=== PATIENT | male | born 1975 | race Caucasian/White ===

== ENCOUNTER 2018-04-29 05:07 | Inpatient (IN) ==
[2018-04-29] MEDS ORDERED: Metoprolol Tartrate 25 MG Tablet PO ONE (06:15)
[2018-04-29] MEDS ORDERED: Sodium Chlor 0.9% Inj 500 ML IV.CONT ONE (06:15)
[2018-04-29] MEDS ORDERED: Chlorhexidine Gluconate 2% 1 Pack (2 Cloths) TOPICAL ONE (06:15)
[2018-04-29] MEDS ORDERED: Vancomycin Inj 1,250 MG in Sodium Chlor 0.9% Inj 250 ML IV.SIG PRN (06:18)
--- NOTE | 2018-04-29 07:54 | P.CON ---
History of Present Illness Service: Hematology. Consult date: 04/29/18 Requesting Physician: Adan Acevedo Reason for Consult: Von Willebrand disease type 2 M. Primary Care Provider: Araceli Leyva Chief Complaint: Patient denies acute complaints. History of Present Illness: Mr. Birmingham is a 42-year-old man who was recently diagnosed with von Willebrand disease type 2M. He presents to the hospital for elective bariatric surgery which will be performed laparoscopically for management of morbid obesity. The patient was initially told when he was a child that he had von Willebrand's disease after he had significant recurrent bleeding following tonsillectomy. Many years later while undergoing workup for bariatric surgery he was advised formal hematologic evaluation for perioperative management of suspected von Willebrand's disease. In the outpatient setting the patient underwent on 2 separate occasions von Willebrand panel testing, the patient was found to have a decreased ristocetin cofactor activity to von Willebrand antigen ratio, the von Willebrand multimeric pattern was suggestive of von Willebrand type 2M disease. The patient's ristocetin cofactor activity level was consistently low at 26% ( normal limits 42-200%). Von Willebrand antigen factor level was 138% (within normal limits). The plan is to treat him with pre-and postoperative dosing with humate P. Review of Systems All other systems reviewed negative except as stated in HPI Constitutional: Denies anorexia Eyes: Reports blind spots Ears, Nose, Mouth, and Throat: Denies change in voice Cardiovascular: Denies chest pain Respiratory: Denies change in phlegm color, Denies cough Gastrointestinal: Denies abdominal pain Genitourinary: Denies blood in urine Musculoskeletal: Denies abnormal walking Skin/Breast: Denies acne Neurologic: Denies abnormal hearing Psychiatric: Denies abnormal sleep pattern, Denies anxiety Endocrine: Denies cold intolerance Hematologic/Lymphatic: Reports easy bleeding, Reports easy bruising Allergic/Immunologic: Denies GI upset with certain foods PMFSH - History History Provided By: Patient - Medical History Medical History: Medical History (Last Reviewed 03/06/18 @ 06:12 by Elizabeth Christopher) Patient denies medical problems - Surgical History Surgical History: Surgical History (Last Reviewed 03/06/18 @ 06:12 by Elizabeth Christopher) Hx of tonsillectomy - Tobacco History Second Hand Smoke Exposure: No Smoking Status: Never smoker - Alcohol History How Often Do You Have a Drink Containing Alcohol: Monthly or less - Substance Use History Substance History: No History of Abuse Medications and Allergies Active Medications: Active Medications Antihemophilic/von Willebr. Factors (Humate-P Inj) 10,000 units IV.PUSH ONCE ONE Stop: 04/29/18 09:01 Aprepitant (Emend) 40 mg PO CD REACTOR OPERATOR HEAD [facility] Lactated Ringer's (Lr 1000 Ml Inj) 1,000 mls @ 30 mls/hr IV.CONT .Q24H ONE Stop: 04/30/18 06:14 Sodium Chloride (Ns Inj) 500 mls @ 30 mls/hr IV.CONT .[id number] ONE Stop: 04/29/18 22:54 Metronidazole/Sodium Chloride (Flagyl 500 Mg Inj) 100 mls @ 100 mls/hr IV.SIG CD REACTOR OPERATOR HEAD PRN PRN Reason: SCHEDULED Stop: 05/03/18 06:17 Vancomycin HCl 1,250 mg/ (Sodium Chloride) 262.5 mls @ 250 mls/hr IV.SIG CD REACTOR OPERATOR HEAD PRN PRN Reason: SCHEDULED Stop: 05/03/18 06:17 Acetaminophen (Ofirmev Inj) 1,000 mg in 100 mls @ 400 mls/hr IV.SIG CD REACTOR OPERATOR HEAD ANDRE Ondansetron HCl (Zofran Inj) 4 mg IV.PUSH CD REACTOR OPERATOR HEAD [facility] Allergies Allergy/AdvReac Type Severity Reaction Status Date / Time amoxicillin Allergy Itching Verified 03/06/18 06:09 shellfish derived Allergy Swelling Verified 03/06/18 06:09 Home Medications Medication Instructions Recorded Confirmed Type bupropion HCl [Wellbutrin SR] 150 mg PO BID 03/06/18 03/06/18 History Physical Exam Narrative: Young male, sitting up in bed, appears to be no acute distress. Is morbidly obese. Accompanied by his . HEENT: Head atraumatic was felt, conjunctivae not pale sclera anicteric, EOMI, PERRLA, oral exam of pharyngeal erythema. Neck exam no palpable cervical supra clavicular adenopathy. Respiratory exam: Good air movement bilaterally at breath sounds. Cardiovascular exam: Regular rate and rhythm, S1-S2 no obvious murmurs rubs gallops. Abdominal exam: Morbidly obese belly, soft, no obvious tenderness, positive bowel sounds. Skin: Nonfocal examination. SENIOR IT ASSISTANT: No focal sensorimotor deficits. Musculoskeletal: Adequate muscle mass, tone and strength. Lower extremities: Pneumatic compression devices are on. Assessment and Plan - Plan Mr. Birmingham is a 42-year-old man with morbid obesity, he is coming in for bariatric surgery today. He was diagnosed with von Willebrand disease type 2M after undergoing a recent outpatient workup. The patient reports having undergone a tonsillectomy as a child after which he had significant bleeding. He was told informally at that time that he had von Willebrand's disease. The patient did undergo a formal evaluation leading up to this planned surgery. On 2 separate occasions von Willebrand panel testing indicated results most consistent with von Willebrand type 2M disease which is a rare variant of von Willebrand. Because he does carry this diagnosis and because the patient has a below normal ristocetin cofactor activity level at 26% he is at increased risk of bleeding intraoperatively and postoperatively up until epithelialization is complete. For this reason he has been advised factor replacement with Humate P preoperatively and postoperatively. He will be dosed according to the clinic receptionist's recommended dosing; preoperatively dosing at 60-80 units/kg x1 is advised followed by maintenance dosing at a dose of 40-60 units/kg every 8-12 hours as advised. I have been in contact with our pharmacists who have made arrangements to stock sufficient supplies of the humate factor. I have also talked to the surgeon and the anesthesiologist who will be in contact with me during surgery should there be issues with excessive bleeding. I have advised the patient's bariatric surgeon to avoid chemical DVT prophylaxis in the postoperative period due to the risk of bleeding. I have advised pneumatic compression stockings and early ambulation instead. Recommendations: 1. Von Willebrand type 2M: Dose with Humate-P x1 at 10,000 units preoperatively. Pharmacy is aware, preop nursing staff aware, anesthesiologist aware and surgeon aware. I will be on standby to assist with additional recommendations should there be issues with maintaining hemostasis during surgery. I will follow the patient along with you and will see him postoperatively as well. Postoperatively he will be monitored clinically for signs and symptoms of bleeding. I would advise hemoglobin and hematocrit checks every 8 hours at least for 2-3 days.
[2018-04-29] MEDS ORDERED: Metoprolol Tartrate 25 MG Tablet PO SCH (08:05)
[2018-04-29] MEDS ORDERED: Chlorhexidine Gluconate 2% 1 Pack (2 Cloths) TOPICAL SCH (08:05)
[2018-04-29] MEDS ORDERED: ANTIHEMOPHILIC FACTOR VIII IV.PUSH ONE (09:00)
[2018-04-29] MEDS ORDERED: VWF IV.PUSH ONE (09:00)
[2018-04-29] MEDS ORDERED: Sodium Chlor 0.9% Inj 500 ML IV.SIG SCH (09:00)
[2018-04-29] MEDS ORDERED: Bupivacaine/Epinephrine 0.5% Inj 50 ML Vial ONE (09:36)
[2018-04-29] MEDS ORDERED: Succinylcholine Inj 100 MG/5 ML Syringe IV.PUSH ONE (09:55)
[2018-04-29] MEDS ORDERED: Lidocaine PF 1% Inj 5 ML Syringe INFILTRATN ONE (09:55)
[2018-04-29] MEDS ORDERED: Glycopyrrolate Inj 1 MG/5 ML Syringe IV.PUSH ONE (09:55)
[2018-04-29] MEDS ORDERED: Neostigmine Inj 5 MG/5 ML Syringe IV.PUSH ONE (09:55)
[2018-04-29] MEDS ORDERED: diphenhydrAMINE HCl 12.5 MG/5 ML Elixir UDC PO PRN ×2 (14:01→14:08)
[2018-04-29] MEDS ORDERED: Acetaminophen-HYDROcodone 325/7.5 Liq 15 ML UDC PO PRN (14:01)
[2018-04-29] MEDS ORDERED: Post-op Orders (for Pharmacy) OTHER STA ×2 (14:01→14:08)
[2018-04-29] MEDS ORDERED: Naloxone Inj 0.4 MG/ML Vial IV.PUSH PRN (14:08)
[2018-04-29] MEDS ORDERED: KCL 20 mEq/D5W/NaCl 0.45% Inj 1,000 ML IV.CONT SCH (14:15)
[2018-04-29] MEDS ORDERED: fentaNYL Citrate Inj 100 MCG/2 ML Ampul ONE (14:18)
[2018-04-29] MEDS ORDERED: *morphine SULFATE 10 MG/ML PERIprocedure ONLY ONE (14:21)
[2018-04-29] MEDS: KCL 20 mEq/D5W/NaCl 0.45% Inj 1,000 ML IV.CONT SCH (14:30)
[2018-04-29] MEDS: HYDROmorphone PCA Inj 6 MG/30 ML PCA.VIAL PCA PRN ×2 (14:30→20:45)
[2018-04-29] MEDS ORDERED: KCL 20 mEq/D5W/NaCl 0.45% Inj 1,000 ML ONE (14:31)
[2018-04-29] MEDS ORDERED: HYDROmorphone PCA Inj 6 MG/30 ML PCA.VIAL PCA ONE (14:31)
[2018-04-29] MEDS: Vancomycin Inj 1,000 MG in Sodium Chlor 0.9% Inj 250 ML IV.SIG SCH (21:46)
[2018-04-30] MEDS: KCL 20 mEq/D5W/NaCl 0.45% Inj 1,000 ML IV.CONT SCH ×3 (00:22→18:40)
[2018-04-30] MEDS: HYDROmorphone PCA Inj 6 MG/30 ML PCA.VIAL PCA PRN ×2 (05:54→18:42)
[2018-04-30 06:43] LABS: Baso # (Auto) 0.1 th/mm3 (0.0-0.2); Baso % (Auto) 0.8 % (0.0-2.0); Eos # (Auto) 0.1 th/mm3 (0.0-0.4); Eos % (Auto) 0.5 % (0.0-4.0); Lymph # (Auto) 1.2 th/mm3 (1.0-4.8); Lymph % (Auto) 7.2 % (9.0-44.0); Mean Corpuscular HGB Conc 34.1 % (32.0-36.0); Mean Corpuscular Hemoglobin 30.1 pg (27.0-34.0); Mean Corpuscular Volume 88.4 fL (80.0-100.0); Mean Platelet Volume 8.7 fL (7.0-11.0); Mono # (Auto) 1.7 th/mm3 (0.0-0.9); Mono % (Auto) 9.7 % (0.0-8.0); Neut % (Auto) 81.8 % (16.0-70.0); Platelet Count 187 th/mm3 (150-450); Red Blood Count 4.64 mil/mm3 (4.50-5.90); Red Cell Distribution Width 13.8 % (11.6-17.2); White Blood Count 17.1 th/mm3 (4.0-11.0)
[2018-04-30 07:25] LABS: Anion Gap 8 meq/L (5-15); Blood Urea Nitrogen 11 mg/dL (7-18); Calcium 7.9 mg/dL (8.5-10.1); Carbon Dioxide 27.4 meq/L (21.0-32.0); Chloride 104 meq/L (98-107); Glomerular Filtration Rate Greater Than 89 mL/min (>89); Glucose,Random 91 mg/dL (74-106); Sodium 139 meq/L (136-145)
[2018-04-30 07:26] LABS: Potassium 4.3 meq/L (3.5-5.1)
--- NOTE | 2018-04-30 07:27 | P.PNONC ---
Subjective Interval history: Patient seen and examined this AM, POD 1. Surgery was uneventful, postoperative course has also been uneventful for untoward bleeding. This morning, the patient tells me he has been up and out of bed several times. He tells me his pain is reasonably well-controlled. He denies difficulty breathing, he has Pneumatic compression devices on. Objective Vital Signs/Intake & Output: Vital Signs 04/29/18 08:20 04/29/18 14:13 04/29/18 14:30 Temperature 98.5 F 98.6 F Pulse Rate 88 100 H 93 H Respiratory Rate 18 22 22 Blood Pressure 150/88 H 149/79 H 152/70 H Pulse Oximetry 95 95 94 L 04/29/18 14:45 04/29/18 14:55 04/29/18 15:00 Temperature Pulse Rate 91 H 96 H Respiratory Rate 24 23 Blood Pressure 142/70 H 152/70 H Pulse Oximetry 93 L 95 97 04/29/18 15:15 04/29/18 15:30 04/29/18 15:45 Temperature 98.6 F Pulse Rate 92 H 94 H 93 H Respiratory Rate 20 20 20 Blood Pressure 141/60 H 145/60 H 141/64 H Pulse Oximetry 92 L 95 94 L 04/29/18 16:03 04/29/18 16:08 04/29/18 21:08 Temperature 97.6 F 97.9 F Pulse Rate 86 88 Respiratory Rate 18 18 Blood Pressure 144/77 H 120/70 Pulse Oximetry 95 95 96 04/30/18 00:00 04/30/18 05:08 Temperature 97.9 F 98.6 F Pulse Rate 103 H 94 H Respiratory Rate 18 18 Blood Pressure 104/56 L 114/56 L Pulse Oximetry 96 96 Intake & Output 04/29/18 04/30/18 04/30/18 18:59 06:59 18:59 Intake Total 2862.5 / 2862.5 1270 / 1270 Output Total 300 / 300 725 / 725 Balance 2562.5 / 2562.5 545 / 545 Weight 174.1 kg Intake: IV 1462.5 / 1462.5 1250 / 1250 D5W/1/2NS + KCL 20 mEq Inj 1, 1000 / 1000 000 ML @ 125 mls/hr IV.CONT . Q8H [facility] Rx#:[id number] Ofirmev Inj 1,000 mg In 100 ml 100 / 100 @ 400 mls/hr IV.SIG TAG MACHINE OPERATOR ANDRE Rx#:[id number] LR 1000 mL Inj 1,000 ML @ 30 1000 / 1000 mls/hr IV.SIG .Q24H [facility] Rx#: [id number] Vancomycin Inj 1,000 MG In NS 250 / 250 Inj 250 ML @ 250 mls/hr IV.SIG Q12H [facility] Rx#:[id number] Vancomycin Inj 1,250 MG In NS 262.5 / 262.5 Inj 250 ML @ 250 mls/hr IV.SIG TAG MACHINE OPERATOR PRN Rx#:[id number] Flagyl 500 MG Inj 100 ML @ 100 100 / 100 mls/hr IV.SIG TAG MACHINE OPERATOR PRN Rx#: [id number] Oral 20 / 20 Anesthesia Amount 1400 / 1400 Output: Urine 0 / 0 Estimated Blood Loss 50 / 50 Urine Amount (Catheter) 250 / 250 650 / 650 Indwelling Urethral Catheter 250 / 250 650 / 650 Wound Drainage 75 / 75 # 1 Left Abdomen 75 / 75 Other: Date of Last Bowel Movement 04/29/18 Weight On Admission 174.1 kg Result Diagrams: 04/30/18 04:39 04/30/18 04:39 Laboratory Results: Laboratory Results - last 24 hr 04/29/18 04/30/18 08:35 04:39 WBC 17.1 H RBC 4.64 Hgb 14.0 Hct 41.0 MCV 88.4 MCH 30.1 MCHC 34.1 RDW 13.8 Plt Count 187 MPV 8.7 Neut % (Auto) 81.8 H Lymph % (Auto) 7.2 L [place] % (Auto) 9.7 H Eos % (Auto) 0.5 Baso % (Auto) 0.8 Neut # (Auto) 14.0 H Lymph # (Auto) 1.2 [place] # (Auto) 1.7 H Eos # (Auto) 0.1 Baso # (Auto) 0.1 WBC Differential . Differential Comment Auto diff final Blood Type A Positive Antibody Screen Negative MTS Gel Crossmatch See Detail Medications: Active Medications Generic Name Dose Route Start Last Admin Trade Name Freq PRN Reason Stop Dose Admin Acetaminophen 1,000 mg 04/29/18 15:00 04/30/18 04:09 Ofirmev Inj IV.SIG 04/30/18 09:01 1,000 mg Q6H ANDRE Administration Aprepitant 40 mg 04/29/18 06:30 04/29/18 08:39 Emend PO 40 mg TAG MACHINE OPERATOR ANDRE Administration Metronidazole/Sodium Chloride 100 mls @ 100 mls/hr 04/29/18 06:18 04/29/18 10 :40 Flagyl 500 Mg Inj IV.SIG 05/03/18 06:17 Infused TAG MACHINE OPERATOR PRN Infusion SCHEDULED Vancomycin HCl 1,250 mg/ 262.5 mls @ 250 mls/hr 04/29/18 06:18 04/29/18 11:30 Sodium Chloride IV.SIG 05/03/18 06:17 Infused TAG MACHINE OPERATOR PRN Infusion SCHEDULED Acetaminophen 1,000 mg in 100 mls @ 400 mls/hr 04/29/18 06:30 04/29/18 09:40 Ofirmev Inj IV.SIG Infused TAG MACHINE OPERATOR ANDRE Infusion Lactated Ringer's 1,000 mls @ 30 mls/hr 04/29/18 08:15 04/29/18 13:51 Lr 1000 Ml Inj IV.SIG 04/30/18 08:14 Infused .Q24H [facility] Infusion Potassium Chloride/Dextrose/Sod Cl 1,000 mls @ 125 mls/hr 04/29/18 14:15 02/07 00:22 D5w/1/2ns + Kcl 20 Meq Inj IV.CONT 125 mls/hr .Q8H ANDRE Administration Vancomycin HCl 1,000 mg/ 250 mls @ 250 mls/hr 04/29/18 22:00 04/29/18 22:55 Sodium Chloride IV.SIG 04/30/18 10:59 Infused Q12H ANDRE Infusion Hydromorphone/Sodium Chloride 6 mg in 30 mls @ 0 mls/hr 04/29/18 14:08 05:54 Dilaudid Manager Progressive Care Inj OPERATING ROOM SURGICAL TECHNICIAN 0 mls/hr UNSCH PRN Administration prn pain 0 MG/HR Metoclopramide HCl 10 mg 04/29/18 18:00 04/30/18 05:53 Reglan Inj IV.PUSH 04/30/18 12:01 10 mg Q6HR ANDRE Administration Protocol Ondansetron HCl 4 mg 04/29/18 06:30 04/29/18 08:39 Zofran Inj IV.PUSH 4 mg TAG MACHINE OPERATOR ANDRE Administration Sodium Chloride 2 ml 04/29/18 21:00 11/07/18 20:26 Ns Flush IV.FLUSH Not Given BID ANDRE Objective Remarks: Young male, laying in bed, appears to be no acute distress. HEENT: Head atraumatic, normocephalic, conjunctivae not pale sclera anicteric, EOMI, PERRLA, oral exam of pharyngeal erythema. Neck exam no palpable cervical supra clavicular adenopathy. Respiratory exam: Good air movement bilaterally at breath sounds. Cardiovascular exam: Regular rate and rhythm, S1-S2 no obvious murmurs rubs gallops. Abdominal exam: Morbidly obese belly, soft, no obvious tenderness, positive bowel sounds. CHARLEY drain containing approximately 30-40 cc of serosanguineous liquid. Surgical incisions appear dry. Steri-Strips are on. Skin: Nonfocal examination. BROOM MACHINE OPERATOR: No focal sensorimotor deficits. Musculoskeletal: Adequate muscle mass, tone and strength. Lower extremities: Pneumatic compression devices are on. Assessment/Plan - Plan Mr. Birmingham is a 42-year-old man with morbid obesity, he is coming in for bariatric surgery today. He was diagnosed with von Willebrand disease type 2M after undergoing a recent outpatient workup. The patient reports having undergone a tonsillectomy as a child after which he had significant bleeding. He was told informally at that time that he had von Willebrand's disease. The patient did undergo a formal evaluation leading up to this planned surgery. On 2 separate occasions von Willebrand panel testing indicated results most consistent with von Willebrand type 2M disease which is a rare variant of von Willebrand. Because he does carry this diagnosis and because the patient has a below normal ristocetin cofactor activity level at 26% he is at increased risk of bleeding intraoperatively and postoperatively up until epithelialization is complete. Recommendations: 1. Postoperative day 1 following duodenal switch bariatric surgery: Hemostasis appears to be excellent, hemoglobin and hematocrit levels are stable. CHARLEY drain is draining expected amounts of serosanguineous liquid, surgical incisions are also without evidence of ongoing bleeding. He did receive a single dose of humate P preoperatively a dose of 60 units/kg. Given the excellent hemostasis at this time, I have advised against additional Humate-P dosing. If he does begin to lose I will advise DDAVP intranasal spray. Continue monitoring, clinically he is doing very well. Repeat CBC
[2018-04-30] MEDS: Vancomycin Inj 1,000 MG in Sodium Chlor 0.9% Inj 250 ML IV.SIG SCH (11:14)
--- NOTE | 2018-04-30 15:10 | P.PNGS ---
Subjective Patient reports: tolerating liquids well (Pt denies N/V, SOB, palpitations or chest pain. Tolerating 30 every 30 min clear liquid. Pain is well controlled) Physical Exam Vital signs: Vital Signs 04/29/18 15:15 04/29/18 15:30 04/29/18 15:45 Temperature 98.6 F Pulse Rate 92 H 94 H 93 H Respiratory Rate 20 20 20 Blood Pressure 141/60 H 145/60 H 141/64 H Pulse Oximetry 92 L 95 94 L 04/29/18 16:03 04/29/18 16:08 04/29/18 21:08 Temperature 97.6 F 97.9 F Pulse Rate 86 88 Respiratory Rate 18 18 Blood Pressure 144/77 H 120/70 Pulse Oximetry 95 95 96 04/30/18 00:00 04/30/18 05:08 04/30/18 08:28 Temperature 97.9 F 98.6 F 98.8 F Pulse Rate 103 H 94 H 88 Respiratory Rate 18 18 18 Blood Pressure 104/56 L 114/56 L 102/51 L Pulse Oximetry 96 96 04/30/18 08:40 04/30/18 10:00 04/30/18 11:04 Temperature 98.7 F Pulse Rate 88 Respiratory Rate 18 Blood Pressure 123/75 Pulse Oximetry 93 L 93 L 95 04/30/18 13:08 Temperature 98.6 F Pulse Rate 88 Respiratory Rate 18 Blood Pressure 118/71 Pulse Oximetry 94 L Intake & Output 04/29/18 04/30/18 04/30/18 18:59 06:59 18:59 Intake Total 2862.5 / 2862.5 1270 / 1270 1250 / 1250 Output Total 300 / 300 725 / 725 300 / 300 Balance 2562.5 / 2562.5 545 / 545 950 / 950 Weight 174.1 kg Intake: IV 1462.5 / 1462.5 1250 / 1250 1250 / 1250 D5W/1/2NS + KCL 20 mEq Inj 1, 1000 / 1000 1000 / 1000 000 ML @ 125 mls/hr IV.CONT . Q8H [facility] Rx#:[id number] Ofirmev Inj 1,000 mg In 100 ml 100 / 100 @ 400 mls/hr IV.SIG PLATER APPRENTICE ANDRE Rx#:[id number] LR 1000 mL Inj 1,000 ML @ 30 1000 / 1000 mls/hr IV.SIG .Q24H [facility] Rx#: [id number] Vancomycin Inj 1,000 MG In NS 250 / 250 250 / 250 Inj 250 ML @ 250 mls/hr IV.SIG Q12H [facility] Rx#:[id number] Vancomycin Inj 1,250 MG In NS 262.5 / 262.5 Inj 250 ML @ 250 mls/hr IV.SIG PLATER APPRENTICE PRN Rx#:[id number] Flagyl 500 MG Inj 100 ML @ 100 100 / 100 mls/hr IV.SIG PLATER APPRENTICE PRN Rx#: [id number] Oral 20 / 20 Anesthesia Amount 1400 / 1400 Output: Urine 0 / 0 Estimated Blood Loss 50 / 50 Urine Amount (Catheter) 250 / 250 650 / 650 300 / 300 Indwelling Urethral Catheter 250 / 250 650 / 650 300 / 300 Wound Drainage 75 / 75 # 1 Left Abdomen 75 / 75 Other: Date of Last Bowel Movement 04/29/18 Weight On Admission 174.1 kg - Constitutional no acute distress - Routine Neck Exam Present: supple - Routine Respiratory Exam Present: CTA bilaterally - Routine Cardiovascular Exam Present: RRR, S1, S2 - Routine Abdominal Exam Present: soft Comments: normal post operative tenderness, CHARLEY site intact with moderate SS drainage to bulb suction. - Urinary Catheter Management Indwelling Urethral Catheter Cath placed during this visit: yes, but has since been removed by the nurse Reason for continuing: Decision to DC catheter Insertion date: 04/29/18 Insertion time: 10:05 Removal date: 04/30/18 Removal time: 09:10 Results - Labs 04/30/18 04:39 04/30/18 04:39 Laboratory Results - last 24 hr 04/30/18 04/30/18 04:39 04:39 WBC 17.1 H RBC 4.64 Hgb 14.0 Hct 41.0 MCV 88.4 MCH 30.1 MCHC 34.1 RDW 13.8 Plt Count 187 MPV 8.7 Neut % (Auto) 81.8 H Lymph % (Auto) 7.2 L [place] % (Auto) 9.7 H Eos % (Auto) 0.5 Baso % (Auto) 0.8 Neut # (Auto) 14.0 H Lymph # (Auto) 1.2 [place] # (Auto) 1.7 H Eos # (Auto) 0.1 Baso # (Auto) 0.1 WBC Differential . Differential Comment Auto diff final Sodium 139 Potassium 4.3 Chloride 104 Carbon Dioxide 27.4 Anion Gap 8 BUN 11 Creatinine 0.77 Estimated GFR Greater than 89 Random Glucose 91 Calcium 7.9 L Magnesium 2.0 Assessment and Plan - Assessment (1) S/P biliopancreatic diversion with duodenal switch Code(s): Z98.84 - Bariatric surgery status Status: Acute Plan: Advance to 60 ml every 30 minutes of clear liquid in the AM Ambulate every hour, Continue IVF until tolerating PO. SCD's for DVT prevention. (2) Von Willebrand disease, type IIa Code(s): D68.0 - Von Willebrand's disease Status: Chronic Plan: Dr. Maharaj following, repeat CBC in AM. No s/s of abnormal bleeding currently. (3) HTN, goal below 140/90 Code(s): I10 - Essential (primary) hypertension Status: Chronic Plan: Well controlled currently continue to monitor. (4) LAVON (generalized anxiety disorder) Code(s): F41.1 - Generalized anxiety disorder Status: Chronic Plan: Restart Sertaline - Plan POD#1 DS Doing well continue to advance fluids tomorrow. If continues with good progress and CBC stable may continue discharge tomorrow. Code Status: full Discussed Condition With: patient
[2018-04-30] MEDS: buPROPion 150 MG 12 HR Tablet PO SCH (20:17)
[2018-05-01] MEDS: HYDROmorphone PCA Inj 6 MG/30 ML PCA.VIAL PCA PRN (00:15)
[2018-05-01] MEDS: KCL 20 mEq/D5W/NaCl 0.45% Inj 1,000 ML IV.CONT SCH ×3 (00:42→10:10)
[2018-05-01 05:53] LABS: Hematocrit 40.8 % (39.0-51.0); Hemoglobin 13.7 gm/dL (13.0-17.0); Mean Corpuscular HGB Conc 33.5 % (32.0-36.0); Mean Corpuscular Hemoglobin 29.6 pg (27.0-34.0); Mean Corpuscular Volume 88.5 fL (80.0-100.0); Mean Platelet Volume 7.7 fL (7.0-11.0); Platelet Count 295 th/mm3 (150-450); Red Blood Count 4.61 mil/mm3 (4.50-5.90); Red Cell Distribution Width 13.6 % (11.6-17.2); White Blood Count 14.2 th/mm3 (4.0-11.0)
[2018-05-01 06:40] VITALS: RESP 18
[2018-05-01] MEDS: buPROPion 150 MG 12 HR Tablet PO SCH (10:11)
[2018-05-01 11:24] VITALS: BP 132/66; PULSE 72; TEMP 98.7; O2SAT 94
--- NOTE | 2018-05-01 15:53 | P.PNGS ---
Subjective Patient reports: feels better, tolerating liquids well, flatus (Pt denies nausea , SOB, palpitations or chest pain. ) Physical Exam Vital signs: Vital Signs 04/30/18 16:00 04/30/18 20:00 05/01/18 00:00 Temperature 98.1 F 99.4 F 98.5 F Pulse Rate 101 H 106 H 105 H Respiratory Rate 18 20 20 Blood Pressure 154/108 H 147/78 H 161/73 H Pulse Oximetry 96 92 L 92 L 05/01/18 04:00 05/01/18 10:35 05/01/18 11:23 Temperature 98.0 F 98.7 F Pulse Rate 98 H 72 Respiratory Rate 18 Blood Pressure 153/93 H 132/66 Pulse Oximetry 94 L 92 L 94 L Intake & Output 04/30/18 05/01/18 05/01/18 18:59 06:59 18:59 Intake Total 2250 / 2250 1000 / 1000 1000 / 1000 Output Total 300 / 300 80 / 80 70 / 70 Balance 1950 / 1950 920 / 920 930 / 930 Weight 177.2 kg Intake: IV 2250 / 2250 1000 / 1000 1000 / 1000 D5W/1/2NS + KCL 20 mEq Inj 1, 2000 / 2000 1000 / 1000 1000 / 1000 000 ML @ 125 mls/hr IV.CONT . Q8H [facility] Rx#:[id number] Vancomycin Inj 1,000 MG In NS 250 / 250 Inj 250 ML @ 250 mls/hr IV.SIG Q12H [facility] Rx#:[id number] Output: Urine Amount (Catheter) 300 / 300 Indwelling Urethral Catheter 300 / 300 Wound Drainage 80 / 80 70 / 70 # 1 Left Abdomen 80 / 80 70 / 70 Other: # Voids 4 2 - Constitutional no acute distress - Routine Neck Exam Present: supple - Routine Respiratory Exam Present: CTA bilaterally - Routine Cardiovascular Exam Present: RRR, S1, S2 - Routine Abdominal Exam Present: soft Comments: Normoactive bowel sounds, laproscopic and Lele sites WNL. - Urinary Catheter Management Indwelling Urethral Catheter Cath placed during this visit: yes, but has since been removed by the nurse Reason for continuing: Decision to DC catheter Insertion date: 04/29/18 Insertion time: 10:05 Removal date: 04/30/18 Removal time: 09:10 Results - Labs 05/01/18 04:51 04/30/18 04:39 Laboratory Results - last 24 hr 05/01/18 04:51 WBC 14.2 H RBC 4.61 Hgb 13.7 Hct 40.8 MCV 88.5 MCH 29.6 MCHC 33.5 RDW 13.6 Plt Count 295 D MPV 7.7 Assessment and Plan - Assessment (1) S/P biliopancreatic diversion with duodenal switch Code(s): Z98.84 - Bariatric surgery status Status: Acute Plan: Tolerating clear liquid well, start Protein and full liquid in two days Follow up in one week in office with ACID TENDER. (2) Von Willebrand disease, type IIa Code(s): D68.0 - Von Willebrand's disease Status: Chronic Plan: Dr. Maharaj following,CBC stable, d/c home with DDAVP per Dr. Maharaj Pt understands that he will not be discharged until this medication and instruction for use are received from Dr. Maharaj. (3) HTN, goal below 140/90 Code(s): I10 - Essential (primary) hypertension Status: Chronic Plan: Monitor daily notify office if greater than 140/90 (4) LAVON (generalized anxiety disorder) Code(s): F41.1 - Generalized anxiety disorder Status: Chronic Plan: Continue sertraline - Plan POD#2 DS Doing well Discharge home.
[2018-05-01] MEDS ORDERED: DESMOPRESSIN NASAL PRN (16:00)
--- NOTE | 2018-05-08 17:39 | MP ---
cc: Adan Acevedo MD DATE OF OPERATION: PREOPERATIVE DIAGNOSIS: Morbid obesity with a BMI of 62. POSTOPERATIVE DIAGNOSIS: Morbid obesity with a BMI of 62. PROCEDURE PERFORMED: Laparoscopic duodenal switch; 120 cm common channel 150 cm alimentary limb. SURGEON: Adan Acevedo MD DRIVER EDUCATION RO[address] INSTRUCTOR: Tai Figueroa MD. Dr. Figueroa's was assistance was necessary for the procedure due to the complexity of the procedure, Dr. Figueroa assisted with manipulation and exposure during the procedure. The anesthesiologists' assistant provided by [facility] was utilized at managing the camera during the procedure. ANESTHESIA: General endotracheal anesthesia. ESTIMATED BLOOD LOSS: 20 mL FINDINGS: Fatty liver. SPECIMENS: None. COMPLICATIONS: None. OPERATION IN DETAIL: The patient was brought to the operating room and placed on the operating table in a supine position. A bilateral sequential inflation device was placed on the lower extremities. General anesthesia was instituted. A Umanzor catheter was placed. Antibiotics were initiated. The abdomen was prepped and draped sterilely. A point in the periumbilical region was anesthetized with 0.25% Marcaine with epinephrine. A skin incision was made. A 5 mm Optiview port was placed under direct vision and pneumoperitoneum created. Under direct vision two 12 mm left upper quadrant and a 5 mm left lower quadrant port was placed. Two 12 mm right upper quadrant ports and a 5 mm epigastric port were placed. Prior to placement of all ports the skin and peritoneum were anesthetized with 0.25% Marcaine with epinephrine. The patient was placed in reverse Trendelenburg position. A Kylie-Flex retractor was placed and the left lobe of the liver was retracted. The falciform ligament was taken out of the field using a 2-0 nylon suture. Attention was focused on the duodenum. The pylorus was identified. A point 3 cm distal along the duodenum was identified. The peritoneum both medially and laterally along the duodenal bulb was dissected minimally using the Harmonic scalpel. The posterior duodenal space was further dissected using a Gold Finger followed by the laparoscopic band passer. The duodenum was then stapled 3 cm distal to the pylorus using the [employer] Flex power stapler blue load. Bleeding points were controlled using the Harmonic. Attention was then focused on the stomach. The patient was placed with her left side up. The vasculature along the greater curvature of the stomach was using the Harmonic scalpel starting a distance of approximately 10 cm proximal to the pylorus. This was carried towards the angle of His. The angle of His was taken down sharply. The posterior ligamentous attachment was sharply . A 36-[place] ViSiGi bougie was placed at the start of the case. Division of the stomach was then started approximately 10 cm proximal to the pylorus. This was performed using an [employer] Flex stapler. This was carried towards the angle of His to excise approximately 60% of the stomach. The bougie was used as a guide and the stapler at no point was hugging the bougie. The first firing was with a green load followed by three gold loads. All staple loads were reinforced with Seamguard. The gastrocolic ligament was then sutured to the posterior leaflet of the Seamguard. Attention was then focused on the lower abdomen. The patient was placed in Trendelenburg position. The ileocecal valve was identified. The bowel was measured proximally from the ileocecal valve to a distance of 120 cm. This was to be the common channel. This was marked with hemoclips. The regimen was carried further from this aziza another 150 cm proximally. The small bowel was divided in this region using an [employer] Flex stapler white load. The distal segment was marked. It was then brought up to the duodenum and a duodenoileostomy was created using a single layer handsewn anastomosis. The biliopancreatic limb was then brought down to the clips that were marked initially at 120 cm and a ileoileostomy was created using an [employer] Flex stapler white load. Two firings were taken, one proximally and one distally to create the anastomosis. The defect was then closed in a single layer of running 2-0 Vicryl. The defect at the ileostomy in the mesentery was then closed with 2-0 silk suture in a running manner. Attention was then focused back at the duodenoileostomy. The bowel was clamped distal to the anastomosis. Methylene blue diluted with saline was instilled through the ViSiGi. The stomach was distended as well as the proximal bowel with no evidence of extravasation. A 10 round CHARLEY was placed posterior to the gastrojejunostomy and pulled out through the 5 mm port site in the left upper quadrant. Evicel was then placed over the duodenoileostomy and ileoileostomy. The Kylie-Flex retractor was then removed. The CO2 was released. All ports were removed. All skin incisions were closed with 4-0 Monocryl. The patient was awakened and taken to the recovery room stable. MD ADRYAN Fabian/yeni , 05:03 PM , 05:08 PM
== END 2018-05-01 18:01 | disposition home or self-care (01) ==
LOC: HSDI 05:07 → N07 16:24
PROVIDERS: ADMIT Surgery; ATTEND Surgery